=== PATIENT | male | born 1970 | race Hispanic/Latino ===

== ENCOUNTER 2018-04-14 00:45 | Observation (INO) | payer SELFPAY ==
[2018-04-14 01:45] LABS: #Basophils 0.1 thou/uL (0.0-0.2); #Eosinphils 0.1 thou/uL (0.0-0.7); #Lymphocytes 1.9 thou/uL (1.20-3.40); #Monocytes 0.6 thou/uL (0.11-0.59); %Basophils 0.4 % (0.0-1.0); %Eosinophils 0.7 % (0.0-10.0); %Lymphocytes 12.2 % (21.0-51.0); %Monocytes 3.6 % (0.0-10.0); Hemoglobin 16.3 g/dL (14.0-18.0); Mean Corpuscular HGB CONC 33.4 g/dL (32.0-36.0); Mean Corpuscular Hemoglobin 29.1 pg (27.0-31.0); Platelet Count 239 thou/uL (130-400); RBC Distribution Width 12.5 % (11.5-14.5); Red Blood Cell (RBC) Count 5.61 mill/uL (4.70-6.10); White Blood Cell (WBC) Count 15.7 thou/uL (4.8-10.8)
[2018-04-14 01:48] LABS: Bilirubin Negative (Negative); Blood, Urine Small (Negative); Clarity CLEAR (Clear); Glucose, Urine (Dipstick) Negative (Negative); Leukocyte Negative (Negative); Nitrite Negative (Negative); Protein, Urine (Dipstick) Trace mg/dL (Neg-Trace); Urobilinogen 0.2 mg/dL (0.2-1.0); pH, Urine 5.5 (5.0-9.0)
[2018-04-14 01:50] LABS: Bacteria/HPF None Seen HPF (None Seen); Hyaline Casts/LPF 0-3 HYALINE CAST LPF (0-3 Hyaline); Squamous Epithelial 0-3 HPF (0-3); WBC/HPF 0-3 HPF (0-3)
[2018-04-14 02:05] LABS: ALT (SGPT) 9 U/L (8-55); AST (SGOT) 16 U/L (5-34); Albumin 4.2 g/dL (3.5-5.0); Alkaline Phosphatase 67 U/L (40-150); Anion Gap 12 mmol/L (10-20); BUN (Urea Nitrogen) 14 mg/dL (8.9-20.6); Bilirubin, Total 0.4 mg/dL (0.2-1.2); Calc. Creatinine Clearance 0 mL/min (70-130); Calcium 9.2 mg/dL (7.8-10.44); Carbon Dioxide 26 mmol/L (22-29); Chloride 104 mmol/L (98-107); Estimated GFR-MDRD Greater than 90; Globulin 3.4 g/dL (2.4-3.5); Glucose 122 mg/dL (70-105); Potassium 3.9 mmol/L (3.5-5.1); Protein, Total 7.6 g/dL (6.0-8.3); Sodium 138 mmol/L (136-145)
[2018-04-14] MEDS ORDERED: Mag-Al 1200 mg/1200 mg/30 ML UDCUP ONE (02:52)
[2018-04-14] MEDS ORDERED: Lidocaine Viscous Sol 2% 15 ml UD Cup ONE (02:52)
[2018-04-14 03:51] LABS: Troponin I Less than 0.010 ng/mL (< 0.028)
[2018-04-14] MEDS ORDERED: Meropenem 1 GM in Sodium Chloride 0.9% 100 ML IVPB SCH (05:00)
[2018-04-14 06:05] VITALS: BMI 28.7
[2018-04-14] MEDS ORDERED: Ondansetron ODT 4 MG TAB SL PRN (06:10)
[2018-04-14] MEDS ORDERED: Ondansetron HCl/PF 4 MG/2 ML Vial IVP PRN ×2 (06:10→16:15)
[2018-04-14] MEDS: D5 1/2 NS w/20 mEq KCL 1,000 ML IV SCH ×2 (06:20→16:36)
--- NOTE | 2018-04-14 09:36 | RAD ---
CHEST 1 VIEW: Date: 04/14/18 HISTORY: Preop. FINDINGS: Cardiac silhouette is magnified by projection. Pulmonary vasculature unremarkable. Mediastinum midlin e. No lobar consolidation or evidence of pneumothorax. [employer] leads overlie the chest. IMPRESSION: No active cardiopulmonary abnormalities demonstrated. POS: [facility]
--- NOTE | 2018-04-14 09:49 | CT ---
PRELIMINARY REPORT/[facility]/EMERGENTY AFTER-HOURS PROCEDURE CT Abdomen and Pelvis With Intravenous Contrast CLINICAL HISTORY: 47 years old, male; Pain; Abdominal pain; Epigastric; Patient HX: M47 reports to ed C/O abdominal elmer n. Pt reports abdominal pain started at 21: 00 yesterday. Pt reports x1 episodes of vomiting which re lieved the abdominal pain. Pt reports chills. Pt denies fever or diarrhea. Pt reports unable to manish ate po TECHNIQUE: Axial computed tomography images of the abdomen and pelvis with intravenous contrast. Coronal reforma tted images were created and reviewed. COMPARISON: No relevant prior studies available. FINDINGS: Lung bases: The visualized portions of the lung bases are normal. ABDOMEN: Liver: There are no focal liver lesions identified. Gallbladder and bile ducts: There is nonspecific gallbladder wall thickening. There is a small amount of pericholecystic fluid. No ductal dilation. Pancreas: The pancreas appears normal. No ductal dilation. Spleen: The spleen is normal. Adrenals: The adrenal glands are normal. Kidneys and ureters: The kidneys appear normal. No hydronephrosis. Stomach and bowel: The stomach is normal. The duodenum is unremarkable. The colon is normal. No obstruction. No mucosal thickening. PELVIS: Appendix: No findings to suggest acute appendicitis. Bladder: The bladder is normal. Reproductive: The prostate gland and seminal vesicles are normal. ABDOMEN and PELVIS: Intraperitoneal space: Normal. No free air. No significant fluid collection. Bones/joints: No acute fracture. No dislocation. Soft tissues: There is a large fat containing RIGHT inguinal hernia. Vasculature: Normal. No abdominal aortic aneurysm. Lymph nodes: Normal. No enlarged lymph nodes. IMPRESSION: Gallbladder wall thickening and haziness suspicious for acute cholecystitis. RIGHT upper quadrant ult rasound may perform further characterization if clinically warranted. Thank you for allowing us to participate in the care of your patient. Dictated and Authenticated by: Rogers Howard MD 04/14/2018 3:53 AM Central Time ([place] & [place]) FINAL REPORT EMERGENCY AFTER HOURS CT ABDOMEN AND PELVIS WITH IV CONTRAST: Date: 04/14/18 HISTORY: Epigastric abdominal pain that started at 2100 hours. Patient has associated nausea and chills. Vomit ing. IMPRESSION: 1. Nonspecific mild gallbladder wall thickening with a trace amount of pericholecystic fluid. Cholec ystitis in the correct clinical scenario is a differential consideration. However, right upper quadra nt ultrasound is suggested for further evaluation. 2. Large, fat-containing right inguinal hernia. 3. No other acute findings are seen in the abdomen or pelvis. Findings are in agreement with the preliminary report by Pradeep. POS: YANIQUE
--- NOTE | 2018-04-14 09:50 | ULT ---
PRELIMINARY REPORT/[facility]/EMERGENTY AFTER-HOURS PROCEDURE US Abdomen Limited, Right Upper Quadrant CLINICAL HISTORY: 47 years old, male; Pain and signs and symptoms; Nausea and vomiting; Abdominal pain; Other: Epigastr ic radiating to back TECHNIQUE: Real-time ultrasound of the right upper quadrant with image documentation. COMPARISON: CT Abdomen Pelvis W Con 2018-04-14 02:33 FINDINGS: Liver: Normal. No mass. No intrahepatic bile duct dilation. Gallbladder: There is non-mobile cholelithiasis at the gallbladder neck. Gallbladder wall thickening is present measuring up to 4 mm. A negative sonographic Laws sign is reported; note that if patient received pain medication this finding is unreliable. Common bile duct: Unremarkable as visualized. No stones. No dilation. Pancreas: Unremarkable as visualized. Right kidney: RIGHT kidney measures 9.9 x 5.1 x 4.8 cm. No stones. No hydronephrosis. IMPRESSION: Cholelithiasis with gallbladder wall thickening/pericholecystic fluid suspicious for acute cholecysti tis. Thank you for allowing us to participate in the care of your patient. Dictated and Authenticated by: Rogers Howard MD 04/14/2018 4:50 AM Central Time ([place] & [place]) FINAL REPORT RIGHT UPPER QUADRANT ULTRASOUND: Date: 04/14/18 COMPARISON: None. HISTORY: Right upper quadrant pain. TECHNIQUE: Multiplanar Sahni scale sonographic imaging of the right upper quadrant provided. FINDINGS: This report is in agreement with the preliminary report given by Pradeep. Imaged pancreas is unremarkabl e. The tail is obscured by bowel gas. No focal liver lesion or intrahepatic biliary dilatation. The right kidney measures 9.9 cm in craniocaudal dimension and demonstrates no stone, hydronephrosis, or mass. An echogenic stone is noted within the gallbladder neck. There is gallbladder sludge as well. There i s gallbladder wall thickening. The gallbladder neck stone does not appear mobile. The livery car driver rep orts a negative Laws's sign, which may be unreliable if the patient has been administered pain medi cation. CBD measures in the 2-3 mm range, within normal limits. IMPRESSION: Stones and sludge within the gallbladder, including a nonmobile stone in the neck. There is also gall bladder wall thickening. These findings are suspicious for acute cholecystitis in the proper clinical setting. Hepatobiliary scan could be beneficial if clinically warranted. POS: YANIQUE
[2018-04-14] MEDS ORDERED: ISOVUE-370 76%-LOCM 1 ML ONE (10:59)
--- NOTE | 2018-04-14 11:31 | HP ---
HISTORY OF PRESENT ILLNESS: Jose Isaac is a 47-year-old male patient who presents to the emergency room with abdominal pain. He has had this episodically for two months or more. Pain is epigastric, associated with nausea, especially occurring after fatty greasy foods. He presented to the emergenc y room for evaluation and noted to have a white count of 15,000. Liver function tests were normal. Lipase was normal and his CT scan of abdomen and pelvis obtained at midnight 04/14/2018 reveals gallb ladder wall thickening, trace pericholecystic fluid, cholecystitis suspected, large sac containing ri ght inguinal hernia. Ultrasound of abdomen revealed stones and sludge in the gallbladder, nonmobile stone in the neck of the gallbladder, bile duct 2-3 mm. ALLERGIES: None. TOBACCO: None. ALCOHOL: Socially. MEDICATIONS: None routinely. PAST SURGICAL HISTORY: Appendectomy. PAST MEDICAL HISTORY: Noncontributory. FAMILY HISTORY: Noncontributory. REVIEW OF SYSTEMS: Twelve point noncontributory. PHYSICAL EXAMINATION: VITAL SIGNS: Temperature 98.1, 64, 14, 113/72, 5 feet and 4, 167 pounds, 28 BMI. LUNGS: Clear to auscultation. CARDIAC: Regular rate and rhythm without murmur or gallop. ABDOMEN: Soft, nontender. EXTREMITIES: Unremarkable. SKIN: Nonicteric sclerae. Nonjaundiced. Cranial nerves intact. HEENT: Unremarkable. NEUROLOGIC: Without deficit. EXTREMITIES: Without edema. Skin turgor normal. ASSESSMENT AND PLAN: Cholecystitis and cholelithiasis. I have recommended laparoscopic video cholec ystectomy. Risk of infection, bleeding, visceral biliary injury explained and he consents. Plan lap aroscopic cholecystectomy today as an outpatient.
[2018-04-14] MEDS ORDERED: MEROPENEM 1 GM/50 ML 1 GM in Premix Bag 1 BAG IVPB SCH (14:00)
[2018-04-14] MEDS ORDERED: Fentanyl 100 MCG/2 ML VIAL ONE ×2 (14:40→16:15)
[2018-04-14] MEDS ORDERED: Bupivacaine HCl 0.5%/Epinephrine 1:200,000/PF 30 ml Vial ONE (14:46)
[2018-04-14] MEDS ORDERED: Ibuprofen 600 MG TAB PO PRN (16:07)
[2018-04-14] MEDS ORDERED: traMADol HCl 50 MG TAB PO PRN ×2 (16:07)
[2018-04-14] MEDS ORDERED: Acetaminophen 500 MG TAB PO PRN (16:07)
[2018-04-14] MEDS ORDERED: Meperidine HCl/PF 25 MG/ML VIAL SLOW IVP PRN (16:15)
[2018-04-14] MEDS ORDERED: Promethazine HCl 25 MG/ML VIAL IM PRN (16:15)
[2018-04-14] MEDS ORDERED: HYDROmorphone 2 MG/ML VIAL SLOW IVP PRN (16:15)
[2018-04-14] MEDS ORDERED: Promethazine HCl 25 MG/ML VIAL SLOW IVP PRN (16:15)
[2018-04-14] MEDS ORDERED: Morphine Sulfate 2 MG/ML SYRINGE SLOW IVP PRN (16:15)
[2018-04-14 20:07] VITALS: BP 124/77; TEMP 98.3
--- NOTE | 2018-04-15 01:25 | OP ---
DATE OF PROCEDURE: 04/14/2018 PREOPERATIVE DIAGNOSES: Acute cholecystitis, cholelithiasis, gallbladder outlet obstruction with sto ne. POSTOPERATIVE DIAGNOSES: Acute cholecystitis, cholelithiasis, gallbladder outlet obstruction with st one. SURGEON: Kem Bull M.D. ANESTHESIA: General. Local 0.5% Marcaine with epinephrine, 30 mL, laparoscopic cholecystectomy. PROCEDURE: Patient was taken to the operating room where under general anesthesia, abdomen was prepa red with ChloraPrep, draped in routine fashion. Local anesthetic infiltrated into the skin and subcu taneous tissue, port sites. Because of infraumbilical periumbilical incision from an open appendecto my, a right midclavicular subcostal incision was made. Pneumoperitoneum to 15 mmHg obtained with the Veress needle, replacing it with a 5 port and laparoscope inserted. An adhesion free area and the l ower abdomen, right paraumbilical incision made and trocar catheter placed with the moved to t his port. Right lateral subcostal incision made and a 5 port placed. Right subxiphoid incision was made and 11 port placed. Gallbladder was acutely inflamed, edematous. Gallbladder fundus grasped an d reflected cephalad, it was then grasped laterally. This is a stone obstructing gallbladder outlet. Cystic artery and duct dissected free. Critical view obtained. Cystic artery and duct doubly clip ped proximally, divided, and gallbladder dissected free from the liver bed obtaining good hemostasis prior to division of final peritoneal attachments. Gallbladder and contents removed with the patholo gy. Good hemostasis ensured with the cautery. All instruments were removed as pneumoperitoneum and irrigant evacuated. All skin incisions were approximated with interrupted subdermal 4-0 Monocryl and DermaGlue applied.
--- NOTE | 2018-04-15 03:13 | DIS ---
DATE OF ADMISSION: 04/14/2018 DATE OF DISCHARGE: 04/14/2018 DISCHARGE DIAGNOSES: Acute cholecystitis, cholelithiasis, stone obstructing gallbladder outlet. PROCEDURE: Laparoscopic video cholecystectomy. HOSPITAL COURSE: A 47-year-old male with biliary colic symptoms for 2-1/2 months, presents with an a cute episode, especially severe with normal liver function test, lipase; bile duct of 3 mm; and galls tones. He was hospitalized, given antibiotics, taken to the operating room for laparoscopic cholecys tectomy, after which he was discharged home to take Motrin, Tylenol, and ibuprofen as tolerated. He will follow up in my office in 2-3 weeks. Diet and activity as tolerated. No restrictions in liftin g.
== END 2018-04-14 20:06 | disposition home or self-care (01) ==
LOC: ERS 00:45 → SJJU 05:40
PROVIDERS: ADMIT Surgery; ATTEND Surgery
PROC: 0FT44ZZ Resection of Gallbladder, Percutaneous Endoscopic Approach (ICD-10-PCS; principal; 2018-04-14)
DX: K80.12 Calculus of gallbladder with acute and chronic cholecystitis without obstruction (principal)
CPT/HCPCS: 36415; 71045; 74177; 76705; 80053; 81003; 81015; 82550; 82553; 83690; 84484; 85025; 88304; 93005; 96365; G0378; J0670; J2185; J3010; J7050